=== PATIENT | female | born 1950 | race Native Hawaiian/Other Pacific Islander ===

== ENCOUNTER 2018-06-19 08:27 | Outpatient (CLI) | payer MEDICARE | END 2018-06-19 08:28 | disposition home or self-care (01) | LOC: C.MAMMO 08:27 | DX: Z12.31 Encounter for screening mammogram for malignant neoplasm of breast (principal); M81.0 Age-related osteoporosis without current pathological fracture ==

== ENCOUNTER 2018-10-30 08:12 | Outpatient (CLI) | payer MEDICARE | END 2018-10-30 08:13 | disposition home or self-care (01) | LOC: C.NUCMED 08:12 ==